=== PATIENT | male | born 1975 | race Caucasian/White ===

== ENCOUNTER 2022-04-29 18:19 | Emergency (ER) | payer BC, OTHER ==
[~2022-04-29] VITALS: Ht 185.4 cm; Wt 90.7 kg
[~2022-04-29 18:19] MED LIST: LOVA10TA54
[2022-04-29] MEDS ORDERED: fentaNYL CITRATE 100 MCG/2 ML VL IV ONE (18:30)
[2022-04-29] MEDS ORDERED: SODIUM CHLORIDE 0.9% 1,000 ML IV ONE (18:30)
[2022-04-29] MEDS ORDERED: MORPHINE SULFATE 4 MG/ML SYR/VIAL IV PRN (18:30)
[2022-04-29] MEDS ORDERED: IOHEXOL 300 MG/ML 100ML BOTTLE IJ ONE (18:41)
[2022-04-29 19:21] LABS: Basophils # (auto) 0 10 ^3/uL (0-0.2); Basophils % (auto) 0.2 % (0.0-2.0); Eosinophils # (auto) 0 10 ^3/uL (0-0.8); Eosinophils % (auto) 0.2 % (0.0-7.0); Hematocrit 42.4 % (41.0-53.0); Hemoglobin 14.2 g/dL (13.5-17.5); Lymphocytes % (auto) 7.5 % (10.0-50.0); Mean Corpuscular Hgb Conc. 33.5 g/dL (32.0-36.0); Mean Corpuscular Volume 95.4 fL (80.0-100.0); Monocytes # (auto) 0.7 10 ^3/uL (0-1.3); Monocytes % (auto) 5.3 % (0.0-12.0); Neutrophils # (auto) 12.1 10 ^3/uL (1.6-8.6); Neutrophils % (auto) 86.8 % (37.0-80.0); Red Blood Cells 4.45 10^6/uL (4.5-5.90); Red Cell Distribution Width 12.6 % (11.8-14.3); White Blood Cell 13.9 10^3/uL (4.4-10.8)
[2022-04-29 19:36] LABS: Calcium 8.6 mg/dL (8.5-10.1); Potassium 3.8 mmol/L (3.5-5.1)
[2022-04-29 19:40] LABS: BUN/Creatinine Ratio 10.1; Bilirubin, Total 1.2 mg/dL (0.2-1.0); Total Protein 7.4 g/dL (6.4-8.2)
[2022-04-29] MEDS ORDERED: PROPOFOL 10 MG/ML 20 ML IV ONE (20:30)
[2022-04-29] MEDS ORDERED: KETAMINE 50mg/ML 10ml Vial (500mg/10ml) IV ONE (20:30)
[2022-04-30] MEDS ORDERED: PROPOFOL 100 ML IV ONE (01:33)
[2022-04-30] MEDS ORDERED: ceFAZolin IM 1GM/2.5ML STERILE WATER IM ONE (02:30)
[2022-04-30] MEDS ORDERED: KETOROLAC TROMETH 30 MG/ML 1ML VIAL IV ONE (02:30)
[2022-04-30] MEDS ORDERED: TETANUS-DIPTH-ACEL PERTUSSIS 0.5ML SYR Tdap IM ONE (02:30)
[2022-04-30] MEDS ORDERED: HYDROcodone-ACET 5/325MG TAB PO ONE (08:15)
[2022-04-30 09:00] VITALS: BP 125/70
[2022-04-30] MEDS ORDERED: HYDR1TAB97 PO (10:48)
== END 2022-04-30 11:49 | disposition home or self-care (01) ==
LOC: ER 18:19 → EDBD 18:19 → ER 04-30 10:58
DX: S82.891A Other fracture of right lower leg, initial encounter for closed fracture (principal); S70.312A Abrasion, left thigh, initial encounter; V43.92XA Unspecified car occupant injured in collision with other type car in traffic accident, initial encounter; Y93.89 Activity, other specified; Y92.89 Other specified places as the place of occurrence of the external cause; Y99.8 Other external cause status
CPT/HCPCS: 27808; 36415; 70450; 71045; 71260; 72125; 72170; 73562; 73590; 73610; 74177; 80053; 85025; 96361; 96372; 96374; 96375; 99152; 99153; 99285; J0690; J1885; J2270; J2704; J3010; J7030; Q9967